=== PATIENT | male | born 1985 | race Caucasian/White ===

== ENCOUNTER 2017-12-10 01:52 | Emergency (ER) | payer SELFPAY ==
[2017-12-10] MEDS ORDERED: IBUPROFEN 600 MG TABLET PO ONE (02:04)
--- NOTE | 2017-12-10 02:10 | Emergency Department Record ---
History of Present Illness - General Chief complaint: Extremity Problem Stated complaint: LEFT SHOULDER INJURY Time Seen by Provider: 12/10/17 02:03 Source: Patient Mode of Arrival: Ambulatory Limitations: No limitations - History of Present Illness Initial comments: 32 yo male presents to ED for evaluation of left shoulder pain after "slamming a door tonight". Patient reports that he was upset, had been drinking, and out of anger slammed a door closed very hard. Patient states it felt as though something "popped" in the shoulder, denies direct blow or fall-type injury. Patient denies health problems at his baseline. Patient denies taking anything for pain prior to arrival. MD Complaint: Joint pain Onset/Timin -: Hour(s) Location: Left, Shoulder -: Yes Arthralgia Severity scale (1-10): 9 Improves with: Immobilization Worsens with: Palpation Associated Symptoms: Denies other symptoms - Related Data Allergies Allergy/AdvReac Type Severity Reaction Status Date / Time No Known Drug Allergies Allergy Verified 12/10/17 01:58 Travel Screening - Travel/Exposure Within Last 30 Days Have you traveled within the last 30 days?: No - Travel/Exposure Within Last Year Have you traveled outside the [place] in the last year?: No - Additonal Travel Details Have you been exposed to anyone with a communicable illness?: No - Travel Symptoms Symptom Screening: None Review of Systems Constitutional: Denies: Chills, Fever, Malaise Eyes: Denies: Eye discharge, Eye pain ENT: Denies: Congestion, Ear pain, Epistaxis Respiratory: Denies: Cough, Dyspnea Cardiovascular: Denies: Chest pain, Dyspnea on exertion Endocrine: Denies: Fatigue, Heat or cold intolerance Gastrointestinal: Denies: Abdominal pain, Nausea, Vomiting Genitourinary: Denies: Incontinence, Retention Musculoskeletal: Reports: Arthralgia. Denies: Back pain, Gout, Joint swelling Skin: Denies: Bruising, Change in color Neurological: Denies: Abnormal gait, Confusion, Headache, Seizure Psychiatric: Denies: Anxiety Hematological/Lymphatic: Denies: Anemia, Blood Clots Past Medical History - SOCIAL HISTORY Smoking Status: Current every day smoker Alcohol Use: Occasional Alcohol Use Comment: admits 3 beers tonight. and once a week. Drug Use: None - RESPIRATORY Hx Respiratory Disorders: No - CARDIOVASCULAR Hx Cardio Disorders: Yes Hx Hypertension: Yes - NEURO Hx Neuro Disorders: No - GI Hx GI Disorders: No - Hx Genitourinary Disorders: No - ENDOCRINE Hx Endocrine Disorders: No - MUSCULOSKELETAL Hx Musculoskeletal Disorders: No - PSYCH Hx Psych Problems: No - HEMATOLOGY/ONCOLOGY Hx Hematology/Oncology Disorders: No Family Medical History Any Significant Family History?: No Physical Exam - General General Appearance: Alert, Oriented x3, Cooperative, Mild distress, Other ( clinically intoxicated in examination, but answers all questions appropriately) Limitations: No limitations - Eye Eye exam: Normal appearance. negative: Conjunctival injection, Periorbital swelling, Periorbital tenderness, Scleral icterus - ENT Ear exam: negative: Auricular hematoma, Auricular trauma Nasal Exam: negative: Active bleeding, Discharge, Dried blood, Foreign body Mouth exam: negative: Drooling, Laceration, Tongue elevation - Neck Neck exam: Normal inspection. negative: Meningismus, Tenderness - Respiratory Respiratory exam: Normal lung sounds bilaterally. negative: Rales, Respiratory distress, Rhonchi, Stridor - Cardiovascular Cardiovascular Exam: Regular rate, Normal rhythm, Normal heart sounds - GI/Abdominal GI/Abdominal exam: Soft. negative: Rebound, Rigid, Tenderness - Rectal Rectal exam: Deferred - exam: Deferred - Extremities Extremities exam: Normal inspection. negative: Calf tenderness, Pedal edema, Tenderness - Back Back exam: Denies: CVA tenderness (R), CVA tenderness (L) - Neurological Neurological exam: Alert, Normal gait, Oriented X3 - Psychiatric Psychiatric exam: Normal affect, Normal mood - Skin Skin exam: Normal color. negative: Abrasion Type of lesion: negative: abrasion Course - Reevaluation(s) Reevaluation #1: 12/10/17 02:22 Left shoulder: No acute process identified Patient was updated on his radiology results, appears stable for discharge with continued symptomatic care at home for likely shoulder strain. Disposition Disposition: Discharge Clinical Impression: Right shoulder strain Qualifiers: Encounter type: initial encounter Qualified Code(s): S46.911A - Strain of unspecified muscle, fascia and tendon at shoulder and upper arm level, right arm , initial encounter Disposition: Home, Self-Care Condition: (2) Stable Instructions: Shoulder Sprain (ED) Additional Instructions: Return to ED if your symptoms worsen or if you have any concerns. Ibuprofen as directed. Follow-up with your family doctor in 3-5 days as directed. Forms: Patient Portal Access Time of Disposition: 02:09 Quality - Quality Measures Quality Measures: N/A - Blood Pressure Screening Does Patient Have Any of the Following: No Blood Pressure Classification: Hypertensive Reading Systolic Measurement: 171 Diastolic Measurement: 126 Screening for High Blood Pressure: < First Hypertensive BP, F/U Documented > [ G8950] First Hypertensive Follow-up Interventions: Referral to alternative/primary care provider.
--- NOTE | 2017-12-11 09:00 | RADIOLOGY REPORT ---
EXAM: LEFT SHOULDER HISTORY: PAIN ANTERIOR SHOULDER AFTER TRYING TO SLAM A DOOR ABOUT TWO HOURS AGO. TECHNIQUE: Three views of the left shoulder were obtained. Comparison: None. FINDINGS: On the external rotation view there is an oblique linear radiolucency extending through the proximal metaphysis and upper shaft of the left humerus within the medullary portion although not clearly seen to extend through either the medial or lateral cortical border. This may just be an artifact related to overlying soft tissue interface, but a subtle undisplaced fracture is difficult to exclude. Elsewhere the left shoulder appears negative. The glenohumeral joint appears intact as does the acromioclavicular joint. IMPRESSION: THE APPEARANCE IS SUSPICIOUS FOR AN UNDISPLACED PROXIMAL HUMERAL FRACTURE ON THE EXTERNAL ROTATION VIEW ONLY DESCRIBED ABOVE. IF THE CLINICAL SETTING WARRANTS, FOLLOW-UP CT OF THE LEFT SHOULDER WITH ATTENTION TO THIS REGION WOULD BE SUGGESTED TO EXCLUDE A SUBTLE UNDISPLACED FRACTURE. JOB NUMBER: [id number] MTDD
== END 2017-12-10 02:35 | disposition home or self-care (01) ==
LOC: ER 01:52
DX: S46.912A Strain of unspecified muscle, fascia and tendon at shoulder and upper arm level, left arm, initial encounter (principal); I10 Essential (primary) hypertension; X50.0XXA Overexertion from strenuous movement or load, initial encounter; F17.210 Nicotine dependence, cigarettes, uncomplicated
CPT/HCPCS: 99283

== ENCOUNTER 2018-02-08 04:21 | Emergency (ER) | payer MEDICAID ==
--- NOTE | 2018-02-08 04:55 | Emergency Department Record ---
History of Present Illness <Jennifer Marc - Last Filed: 02/08/18 09:48> - General Source: Patient Mode of Arrival: Ambulatory - History of Present Illness Initial comments: The patient has had "several" days of coughing and left posterior and lateral rib pain. He is a smoker who denies fevers, chills, or change in the color of his cough. He uses inhalers but is here for the rib pain. He is unsure if he has ever had pneumonia. He denies history of PE, DVT, [place]. Onset/Timin -: Days(s) Location: Left, Other History of Same: Yes Severity scale (1-10): 10 Quality: Sharp, Stabbing Consistency: Constant, Getting worse Improves with: Nothing Worsens with: Nothing Associated Symptoms: Denies other symptoms <CINDY WOODWARD - Last Filed: 02/09/18 01:24> - General Chief complaint: Pain Stated complaint: L RIB PAIN Time Seen by Provider: 02/08/18 04:45 - Related Data Previous Rx's Medication Instructions Recorded Omeprazole [Prilosec] 20 mg PO DAILY #10 02/08/18 Allergies Allergy/AdvReac Type Severity Reaction Status Date / Time No Known Drug Allergies Allergy Verified 12/10/17 01:58 Travel Screening - Travel/Exposure Within Last 30 Days Have you traveled within the last 30 days?: No <CINDY WOODWARD - Last Filed: 02/09/18 01:24> Review of Systems Reviewed: No additional complaints except as noted below Constitutional: Reports: As per HPI. Denies: Chills, Fever, Malaise, Night sweats, Weakness, Weight change Eyes: Reports: As per HPI. Denies: Eye discharge, Eye pain, Photophobia, Vision change ENT: Reports: As per HPI. Denies: Congestion, Dental pain, Ear pain, Epistaxis , Hearing loss, Throat pain Respiratory: Reports: As per HPI. Denies: Cough, Dyspnea, Hemoptysis, Stridor, Wheezes Cardiovascular: Reports: As per HPI. Denies: Arrhythmia, Chest pain, Dyspnea on exertion, Edema, Murmurs, Orthopnea, Palpitations, Paroxysmal nocturnal dyspnea, Rheumatic Fever, Syncope Endocrine: Reports: As per HPI. Denies: Fatigue, Heat or cold intolerance, Polydipsia, Polyuria Gastrointestinal: Reports: As per HPI. Denies: Abdominal pain, Constipation, Diarrhea, Hematemesis, Hematochezia, Melena, Nausea, Vomiting Genitourinary: Reports: As per HPI. Denies: Dysuria, Frequency, Hematuria, Incontinence, Retention, Testicular pain, Testicular mass, Urgency Musculoskeletal: Reports: As per HPI. Denies: Arthralgia, Back pain, Gout, Joint swelling, Myalgia, Neck pain Skin: Reports: As per HPI. Denies: Bruising, Change in color, Change in hair/ nails, Lesions, Pruritus, Rash Neurological: Reports: As per HPI. Denies: Abnormal gait, Confusion, Headache, Numbness, Paresthesias, Seizure, Tingling, Tremors, Vertigo, Weakness Psychiatric: Reports: As per HPI. Denies: Anxiety, Auditory hallucinations, Depression, Homicidal thoughts, Suicidal thoughts, Visual hallucinations Hematological/Lymphatic: Reports: As per HPI. Denies: Anemia, Blood Clots, Easy bleeding, Easy bruising, Swollen glands <CINDY WOODWARD - Last Filed: 02/09/18 01:24> Past Medical History - SOCIAL HISTORY Smoking Status: Current every day smoker Alcohol Use: Occasional Drug Use: None - RESPIRATORY Hx Respiratory Disorders: No - CARDIOVASCULAR Hx Cardio Disorders: Yes Hx Hypertension: Yes - NEURO Hx Neuro Disorders: No - GI Hx GI Disorders: No - Hx Genitourinary Disorders: No - ENDOCRINE Hx Endocrine Disorders: No - MUSCULOSKELETAL Hx Musculoskeletal Disorders: No - PSYCH Hx Psych Problems: No - HEMATOLOGY/ONCOLOGY Hx Hematology/Oncology Disorders: No <CINDY WOODWARD - Last Filed: 02/09/18 01:24> Family Medical History Any Significant Family History?: No <CINDY WOODWARD - Last Filed: 02/09/18 01:24> Physical Exam - General General Appearance: Alert, Oriented x3, Cooperative, Moderate distress - Head Head exam: Normal inspection - Eye Eye exam: Normal appearance, PERRL, Conjunctival injection, EOMI. negative: Nystagmus Pupils: Normal accommodation - ENT ENT exam: Normal exam, Mucous membranes moist, Normal external ear exam, Normal orophraynx, TM's normal bilaterally Ear exam: Normal external inspection. negative: External canal tenderness Nasal Exam: Normal inspection. negative: Discharge, Sinus tenderness Mouth exam: Normal external inspection, Tongue normal Teeth exam: Normal inspection. negative: Dental caries Throat exam: Normal inspection. negative: Tonsillar erythema, Tonsillar exudate - Neck Neck exam: Normal inspection, Full ROM. negative: Lymphadenopathy, Meningismus , Tenderness - Respiratory Respiratory exam: Chest wall tenderness (left posterior and left lateral chest wall very tender to palpation diffusely without crepitance or sub Q emphysema. No rash or shingles visualized.), Decreased breath sounds. negative: Respiratory distress - Cardiovascular Cardiovascular Exam: Regular rate, Normal rhythm, Normal heart sounds - GI/Abdominal GI/Abdominal exam: Soft, Normal bowel sounds. negative: Tenderness - Rectal Rectal exam: Deferred - exam: Deferred - Extremities Extremities exam: Normal inspection, Full ROM, Normal capillary refill. negative: Calf tenderness, Pedal edema, Tenderness - Back Back exam: Reports: Normal inspection, Full ROM. Denies: Muscle spasm, Rash noted, Tenderness - Neurological Neurological exam: Alert, CN II-XII intact, Normal gait, Oriented X3, Reflexes normal. negative: Motor sensory deficit - Psychiatric Psychiatric exam: Normal affect, Normal mood - Skin Skin exam: Dry, Intact, Normal color, Warm <CINDY WOODWARD A - Last Filed: 02/09/18 01:24> Course Vital Signs 02/08/18 02/08/18 02/08/18 04:35 05:13 07:13 Temperature 97.7 F Pulse Rate 58 L Pulse Rate [ 87 77 Pulse Ox Probe] Respiratory 18 18 20 Rate Blood Pressure 137/87 128/77 [Left Arm] Pulse Ox 96 100 96 - Reevaluation(s) Reevaluation #2: 02/08/18 09:51 pt did well. pt informed of need to get egd <Jennifer Marc - Last Filed: 02/08/18 09:48> Vital Signs 02/08/18 04:35 Temperature 97.7 F Pulse Rate [ 87 Pulse Ox Probe] Respiratory 18 Rate Blood Pressure 137/87 [Left Arm] Pulse Ox 96 - Reevaluation(s) Reevaluation #1: Patient is slightly improved after medications, nebulizer, and solumedrol IV. His significant other states he is coughing up dark but that is not new. Patient was taken to CT for his CTA due to elevated d dimer. 02/08/18 06:23 02/08/18 06:26 02/08/18 06:[address] scan for CTA. Awaiting results. Care turned over to Dr. Marc at 7 .m. shift change due to pending CTA result and plan for a repeat troponin. 02/09/18 01:23 <CINDY WOODWARD - Last Filed: 02/09/18 01:24> Medical Decision Making - Lab Data Result diagrams: 02/08/18 05:15 02/08/18 05:15 Lab Results 02/08/18 02/08/18 02/08/18 Range/Units 05:15 05:15 05:15 WBC 9.0 (4.2-12.2) K/uL RBC 4.88 (4.40-5.70) M/uL Hgb 15.3 (14.0-18.0) gm/dl Hct 45.5 (42.0-52.0) % MCV 93.2 (81-97) fl MCH 31.4 (27-33) pg MCHC 33.6 (32-36) g/dl RDW 13.9 (11.5-14.5) % Plt Count 304 (130-400) K/uL MPV 8.8 (7.4-10.4) fl Gran % 57.9 (47-80) % Lymphocytes % 25.4 (16-45) % Monocytes % 11.9 H (0-9) % Eosinophils % 3.7 (0-6) % Basophils % 1.1 (0-6) % ESR (0-15) mm/hr D-Dimer 1.66 H (0-0.59) mg/L FEU Sodium 143 (136-145) mmol/L Potassium 4.0 (3.4-4.5) mmol/L Chloride 102 (98-107) mmol/L Carbon Dioxide 23.0 (22-29) mmol/L Anion Gap 18.0 H (7-16) BUN 15 (6-20) mg/dL Creatinine 0.9 (0.7-1.2) mg/dL Estimated GFR > 60 mL/min Random Glucose 96 (74-109) mg/dL Calcium 8.6 (8.6-10.0) mg/dL Total Bilirubin 0.20 (0.2-1.0) mg/dL AST 27 (10.0-50.0) U/L ALT 38 (<41) U/L Alkaline Phosphatase 87 (40-129) U/L Troponin T (0-0.010) ng/mL Total Protein 6.9 (6.6-8.7) g/dL Albumin 4.3 (4.0-5.0) g/dL Globulin 2.6 (1.4-4.8) gm/dL Albumin/Globulin Ratio 1.7 (1.1-1.8) 02/08/18 02/08/18 02/08/18 Range/Units 05:15 05:15 09:10 WBC (4.2-12.2) K/uL RBC (4.40-5.70) M/uL Hgb (14.0-18.0) gm/dl Hct (42.0-52.0) % MCV (81-97) fl MCH (27-33) pg MCHC (32-36) g/dl RDW (11.5-14.5) % Plt Count (130-400) K/uL MPV (7.4-10.4) fl Gran % (47-80) % Lymphocytes % (16-45) % Monocytes % (0-9) % Eosinophils % (0-6) % Basophils % (0-6) % ESR 1 (0-15) mm/hr D-Dimer (0-0.59) mg/L FEU Sodium (136-145) mmol/L Potassium (3.4-4.5) mmol/L Chloride (98-107) mmol/L Carbon Dioxide (22-29) mmol/L Anion Gap (7-16) BUN (6-20) mg/dL Creatinine (0.7-1.2) mg/dL Estimated GFR mL/min Random Glucose (74-109) mg/dL Calcium (8.6-10.0) mg/dL Total Bilirubin (0.2-1.0) mg/dL AST (10.0-50.0) U/L ALT (<41) U/L Alkaline Phosphatase (40-129) U/L Troponin T < 0.010 < 0.010 (0-0.010) ng/mL Total Protein (6.6-8.7) g/dL Albumin (4.0-5.0) g/dL Globulin (1.4-4.8) gm/dL Albumin/Globulin Ratio (1.1-1.8) <Jennifer Marc - Last Filed: 02/08/18 09:48> - Data Complexity MDM Data: Labs Ordered and/or Reviewed (D dimer elevated at 1.66; troponin normal <0.010), EKG Ordered and/or Reviewed - Lab Data Result diagrams: 02/08/18 05:15 02/08/18 05:15 - EKG Data -: EKG Interpreted by Me (EKG with ant. lead early repolarization pattern w/ no prior for comparison) - Radiology Data Radiology results: Pending <CINDY WOODWARD - Last Filed: 02/09/18 01:24> Disposition Disposition: Discharge <Jennifer Marc - Last Filed: 02/08/18 09:48> <CINDY WOODWARD - Last Filed: 02/09/18 01:24> Clinical Impression: Esophageal abnormality Chest pain Qualifiers: Chest pain type: unspecified Qualified Code(s): R07.9 - Chest pain, unspecified Disposition: Home, Self-Care Condition: (1) Good Instructions: Chest Pain (ED), Hiatal Hernia (ED), Esophagitis (ED) Additional Instructions: follow up with family doctor and gi doctor. return sooner if worse. Prescriptions: Omeprazole [Prilosec] 20 mg PO DAILY #10 Referrals: VETO HENDERSON [DOCTOR OF OSTEOPATH] - [facility] [Provider Group] Forms: Patient Portal Access Quality - Quality Measures Quality Measures: N/A - Blood Pressure Screening Does Patient Have Any of the Following: No Blood Pressure Classification: Pre-Hypertensive BP Reading Systolic Measurement: 128 Diastolic Measurement: 77 Screening for High Blood Pressure: < Pre-Hypertensive BP, F/U Documented > [ G8950] Pre-Hypertensive Follow-up Interventions: Follow-up with rescreen every year. <Jennifer Marc - Last Filed: 02/08/18 09:48> - Blood Pressure Screening Does Patient Have Any of the Following: No Blood Pressure Classification: Hypertensive Reading Systolic Measurement: 182 Diastolic Measurement: 119 <CINDY WOODWARD - Last Filed: 02/09/18 01:24>
[2018-02-08] MEDS: IPRATROPIUM/ALBUTEROL (0.5MG/3MG) NEB INH ONE (05:13)
[2018-02-08] MEDS: KETOROLAC 30 MG/ML VIAL IVP ONE (05:18)
[2018-02-08] MEDS: METHYLPREDNISOLONE PF 125MG/VIAL IVP ONE (05:18)
[2018-02-08] MEDS: ORPHENADRINE CITRATE 60MG/2ML VIAL IVP ONE (05:18)
[2018-02-08] MEDS: 0.9 % SODIUM CHLORIDE 1,000 ML BAG IV ONE (05:19)
[2018-02-08 05:24] LABS: BASO % 1.1 % (0-6); EOS % 3.7 % (0-6); GRAN % 57.9 % (47-80); HEMATOCRIT 45.5 % (42.0-52.0); HEMOGLOBIN 15.3 gm/dl (14.0-18.0); LYMPH % 25.4 % (16-45); MEAN CELL VOLUME 93.2 fl (81-97); MEAN CORPUSCULAR HEMOGLOBIN 31.4 pg (27-33); MEAN CORPUSCULAR HGB CONC 33.6 g/dl (32-36); MEAN PLATELET VOLUME 8.8 fl (7.4-10.4); MONO % 11.9 % (0-9); PLATELET COUNT 304 K/uL (130-400); RED BLOOD COUNT 4.88 M/uL (4.40-5.70); RED CELL DISTRIBUTION WIDTH 13.9 % (11.5-14.5)
[2018-02-08 05:40] LABS: BLOOD UREA NITROGEN 15 mg/dL (6-20)
[2018-02-08 05:41] LABS: CREATININE 0.9 mg/dL (0.7-1.2); EST GLOMERULAR FILTRATION RATE > 60 mL/min; TOTAL PROTEIN 6.9 g/dL (6.6-8.7)
[2018-02-08 05:43] LABS: GLUCOSE,RANDOM 96 mg/dL (74-109)
[2018-02-08 05:46] LABS: ALB/GLOB RATIO 1.7 (1.1-1.8); ALBUMIN 4.3 g/dL (4.0-5.0); ALKALINE PHOSPHATASE 87 U/L (40-129); ALT/SGPT 38 U/L (<41); AST/SGOT 27 U/L (10.0-50.0)
--- NOTE | 2018-02-09 19:15 | CT ANGIOGRAM REPORT ---
EXAM: CT ANGIOGRAM CHEST CTA w contrast HISTORY: SHARP LEFT POSTERIOR UPPER RIB PAIN FOR THE PAST FOUR DAYS. ELEVATED D -DIMER. TECHNIQUE: Standard CT angiography of the chest was performed with postprocessing following the bolus administration of 100 mL of Omnipaque-350. Additional coronal and sagittal maximum intensity projection reformatted images were performed on an independent workstation under concurrent supervision. COMPARISON: None. FINDINGS: There is mild motion artifact within the upper lung velasco. The heart is upper normal in size. There is no pericardial effusion. The aorta is normal in caliber. The pulmonary arterial tree appears within normal limits. The motion artifact within the upper lung velasco slightly limits the evaluation of the small upper lobe pulmonary arterial branches. No discrete emboli are identified. Dependent atelectasis is present within both lungs. A small amount of mucous material is present within a right lower lobe bronchus. There are no visible acute pulmonary infiltrates or effusions. There is no pneumothorax. There are mildly enlarged mediastinal lymph nodes. A pretracheal lymph node is present and measures 1.1 x 2.1 cm. A subcarinal lymph node measures 1 x 1.7 cm. Multiple scattered nonenlarged mediastinal lymph nodes and hilar lymph nodes are also present. There is a mildly enlarged right axillary lymph node measures 1.2 x 1.9 cm. A borderline enlarged left axillary lymph node is present measuring 1 x 1.3 cm. The etiology of this lymphadenopathy is uncertain. The chest wall appears normal. There is no acute osseous abnormality. There is a small hiatal hernia. There is abnormal wall thickening of the distal esophagus of uncertain etiology. A follow-up EGD is recommended for further characterization. There is mild fatty infiltration of the liver. The upper abdomen is otherwise normal. IMPRESSION: 1. MILD BREATHING MOTION ARTIFACT. 2. NO EVIDENCE FOR PULMONARY EMBOLUS OR OTHER ACUTE CARDIOPULMONARY PROCESS. 3. ABNORMAL WALL THICKENING OF THE DISTAL ESOPHAGUS. A FOLLOW-UP EGD IS RECOMMENDED FOR FURTHER CHARACTERIZATION. 4. SMALL HIATAL HERNIA. 5. MILD NONSPECIFIC MEDIASTINAL AND AXILLARY LYMPHADENOPATHY. A SHORT-TERM FOLLOW-UP CT STUDY IS RECOMMENDED IN APPROXIMATELY THREE MONTHS TO CONFIRM STABILITY OR RESOLUTION. 6. HEPATIC STEATOSIS. JOB NUMBER: [id number] [facility]
== END 2018-02-08 10:09 | disposition home or self-care (01) ==
LOC: ER 04:21
DX: R07.9 Chest pain, unspecified (principal); K22.8 Other specified diseases of esophagus; K44.9 Diaphragmatic hernia without obstruction or gangrene; I10 Essential (primary) hypertension; F17.210 Nicotine dependence, cigarettes, uncomplicated
CPT/HCPCS: 71275; 80053; 84484; 85025; 85379; 85651; 93005; 93010; 94640; 99284; J1885; J2360; J2930